=== PATIENT | female | born 2000 | race American Indian/Alaskan Native ===

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

== ENCOUNTER 2025-08-12 05:53 | Inpatient (IN) ==
[2025-08-12] MEDS ORDERED: LIDOCAINE 1% LOCAL 20 ML VIAL INFIL PRN (06:38)
[2025-08-12] MEDS ORDERED: OXYTOCIN 30 UNITS/NSS 30 UNITS/500 ML BAG IV PRN (06:38)
--- NOTE | 2025-08-12 06:42 | History & Physical Report ---
Date of Service August 12, 2025 Assessment & Plan (1) labor: Plan: 34 weeks 6 days presents in spontaneous labor 5 cm on admission to hospital bulging membranes presenting part not easily palpable ultrasound performed in its vertex start penicillin will make pediatric metrics aware patient request epidural not a transfer candidate as she has 5 cm second baby History of Present Illness Primary Care Provider: NO PCP Estimated Delivery Date Method Current WG Current Estimate 09/17/25 Ultrasound #1 34w 0d Other Estimates 08/24/25 LMP (Certain) 37w 3d LMP: 11/17/24 : 2 Full term: 0 Premature: 1 Total Number of Induced Abortions: 0 Total Number of Spontaneous Abortions: 0 Ectopics: 0 Multiple births: 0 Number of Living Children: 1 and Delivery Plans Previous delivery at 34 weeks PPROM *MFM Consult 04/10/25 *cx length us Q 2wk until 23w6d - Declined at 20w Hep B not immune 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 Thalassemia FOB to be tested - order provided 04/01 - Declined Allergies Allergy/AdvReac Type Severity Reaction Status Date / Time No Known Allergies Allergy Unknown Verified 08/06/25 16:04 Home Medications Medication Instructions Recorded Confirmed Type No Known Home Medications 01/29/25 08/06/25 History Patient History Medical History (Updated 08/12/25 @ 06:40 by Avani Magaña MD, FACOG) Varicella vaccination UTI (urinary tract infection) Asthma Surgical History S/P tonsillectomy Family History Mother Thyroid cancer Denies family history of Ovarian cancer Breast cancer Colorectal cancer Uterine cancer Social History (Updated 08/12/25 @ 06:14 by Sunitha Scott, RN) Smoking Status: Never smoker Do You Dip or Chew Tobacco: No; Hx Alcohol Use: No Hx Substance Use: No Preferred Language: German Communication Ability: Effective Shelter Monitor Required: No Beliefs That Will Affect Care: None marital status: marital status details: Tal Garrett (24) [phone] Current Living Situation: Spouse and Family Current Living Situation Comment: lives with , son, no pets current occupational status: unemployed current occupation: homemaker Other Information That Helps Us Care for You: No Feels Safe at Home: Yes Safety Concerns: Feels Safe At This Time Assistive Devices: Contacts Physical Exam Constitutional: WD/WN, vitals as above well developed and well nourished Respiratory: normal respiratory effort, lungs clear to auscultation normal respiratory effort Cardiovascular: RRR, no murmur, no edema Gastrointestinal (Abdomen): normal bowel sounds, soft, nontender, no hepatosplenomegaly Results & Data Vital Signs (Past 12 Hours) Vital Signs Temp Resp 08/12/25 06:14 97.9 F 18 Coding Level of Care Code None Diagnoses labor O60.00
[2025-08-12] MEDS: LACTATED RINGER'S 1,000 ML IV PRN (06:45)
[2025-08-12 07:05] LABS: Hematocrit (blood only) 39.4 % (37.0-47.0); Hemoglobin 13.3 g/dL (12.0-16.0); Mean Corpuscular Hemoglobin 27.5 pg (25.0-34.0); Mean Corpuscular Volume 81.4 fL (80.0-100.0); Platelet Count 270 K/uL (130-400); RDW Standard Deviation 34.6 fL (36.4-46.3); Red Blood Count 4.84 M/uL (4.20-5.40); White Blood Count 8.52 K/ul (4.8-10.8)
[2025-08-12] MEDS ORDERED: LIDOCAINE 2% MPF LOCAL 5 ML VIAL EPI PRN (07:08)
[2025-08-12] MEDS ORDERED: NALOXONE HCL 0.4 MG/1 ML VIAL/CARP IV PRN (07:08)
[2025-08-12] MEDS ORDERED: SODIUM CHLORIDE 0.9% PF INJ 10 ML VIAL EPI STA (07:08)
[2025-08-12] MEDS ORDERED: SODIUM CHLORIDE 0.9% PF INJ 10 ML VIAL EPI PRN (07:08)
[2025-08-12] MEDS ORDERED: NALOXONE HCL 1 MG in SODIUM CHLORIDE 0.9% 1,000 ML IV PRN (07:08)
[2025-08-12] MEDS ORDERED: diphenhydrAMINE 50 MG/ML VIAL IV PRN (07:08)
[2025-08-12] MEDS ORDERED: NALBUPHINE HCL INJ 10 MG/ML AMP IV PRN (07:08)
[2025-08-12] MEDS ORDERED: BUPIVACAINE 0.25% PF 30 ML VIAL EPI STA (07:08)
[2025-08-12] MEDS ORDERED: ROPIVACAINE 0.5% PF 5 MG/ML 20 ML VIAL EPI PRN (07:08)
--- NOTE | 2025-08-12 07:12 | Anesthesiology Consultation ---
Date of Service August 12, 2025 Assessment & Plan Chart Review Chart Review: Patient NOT seen in Pre Admission Testing and Acceptable Risk for Labor Epidural Consults Requested none ASA ASA2 Proposed Anesthesia Anesthesia Type: Labor Epidural Risk / Benefits Reviewed With: PT / POA / Parent / Guardian, Accepts Plan and Informed Consent Obtained History Height/Weight Height: 5 ft Weight: 69.4 kg Allergies Allergy/AdvReac Type Severity Reaction Status Date / Time No Known Allergies Allergy Unknown Verified 08/06/25 16:04 Medications Home Medications Medication Instructions Recorded Confirmed Last Taken No Known Home Medications 01/29/25 08/06/25 Unknown Active Medications Generic Name Dose Route Start Last Admin Trade Name Freq PRN Reason Stop Dose Admin Lactated Ringer's 1,000 mls @ 125 mls/hr 08/12/25 06:38 08/12/25 06:45 Lr IV 08/14/25 06:37 999 mls/hr .Q8H PRN Administration L&D Protocol Protocol NPO Date Last Intake of Fluids: 08/12/25 Time Last Intake of Fluids: 07:00 Date Last Intake of Solids: 08/11/25 Time Last Intake of Solids: 21:00 Past Medical History Medical History Varicella vaccination UTI (urinary tract infection) Asthma Exercise / Class Metabolic Activity II 4-5 Yardwork/Stairs/Walk up hill Past Family History Family History Mother Thyroid cancer Denies family history of Ovarian cancer Breast cancer Colorectal cancer Uterine cancer Past Surgical History Surgical History S/P tonsillectomy Past Anesthesia History No Hx of Anesthesia Complications and No Family Hx of Anesthesia Complications History of PONV No Hx of PONV and No Hx of Motion Sickness Social History Smoking Status: Never smoker Do You Dip or Chew Tobacco: No Hx Alcohol Use: No Hx Substance Use: No Review of Systems ROS Unobtainable: All systems reviewed & are unremarkable except as noted in HPI & below Physical Exam Vital Signs Last Vital Signs Temp 36.6 C 08/12/25 06:14 Pulse 68 08/12/25 07:06 Resp 18 08/12/25 06:14 Pulse Ox 100 08/12/25 07:06 ENMT Mouth: no TMJ abnormality Thyromental Distance: > or= 3.5 Finger Breadths Mallampati Class: II Neck normal visual inspection and trachea midline; neck extension not limited Respiratory normal respiratory effort Auscultation: lungs clear to auscultation bilaterally Cardiovascular Rate/Rhythm: regular rate and regular rhythm Heart Sounds: no murmur Musculoskeletal Spine: normal cervical ROM Extremities: full ROM of extremities Neurologic moves all extremities Psychiatric Orientation: alert and oriented x 3 Testing Laboratory Results 08/12/25 06:43
[2025-08-12] MEDS: LIDOCAINE 2%/EPINEPHRINE 1:200,000 20 ML PF EPI STA (07:30)
[2025-08-12] MEDS: BUPIVACAINE 0.25% PF 30 ML VIAL EPI PRN (07:30)
[2025-08-12] MEDS: fentANYL 2 MCG/ML BUPIVacaine 0.125%-NSS 100ML BAG EPI PRN (07:30)
[2025-08-12] MEDS: PENICILLIN GK 6 MU in DEXTROSE 5% 250 ML IV STA (07:30)
--- NOTE | 2025-08-12 07:39 | Communication Note ---
Date of Service: August 12, 2025 On 1st attempt, +CSF at L3-4. Removed needled and performed epidural at L2-3 without complication. Discussed with bedside RN and patient and patient und erstands signs and symptoms to look out for in the post period.
--- NOTE | 2025-08-12 09:01 | Labor Progress Brief Note ---
Date of Service August 12, 2025 Subjective Comfortable with epidural. FHT Cat 1 [place] q 2 Cervix exam by RN anterior lip/bulging bag Has rec'd first dose PCN. Assessment & Plan Admission and Anticipated Discharge Date Admission Date: August 12, 2025 Results & Data Vital Signs (Past 12 Hours) Vital Signs Temp Pulse Resp BP Pulse Ox 08/12/25 08:53 84 102/55 L 08/12/25 08:51 90 100 08/12/25 08:46 81 100 08/12/25 08:41 83 100 08/12/25 08:38 102 H 109/55 L 08/12/25 08:36 104 H 100 08/12/25 08:31 89 100 08/12/25 08:30 16 08/12/25 08:30 16 08/12/25 08:26 102 H 100 08/12/25 08:23 94 H 96/51 L 08/12/25 08:21 77 100 08/12/25 08:16 85 100 08/12/25 08:11 91 H 100 08/12/25 08:09 93 H 101/59 L 08/12/25 08:06 94 H 100 08/12/25 08:01 86 100 08/12/25 07:56 88 100 08/12/25 07:51 110 H 108/57 L 100 08/12/25 07:49 88 100/52 L 08/12/25 07:47 83 103/55 L 08/12/25 07:46 96 H 100 08/12/25 07:45 82 106/55 L 08/12/25 07:43 86 102/55 L 08/12/25 07:41 100 08/12/25 07:41 87 08/12/25 07:41 92 H 105/58 L 08/12/25 07:39 85 106/56 L 08/12/25 07:37 81 105/57 L 08/12/25 07:36 76 100 08/12/25 07:34 86 88/49 L 08/12/25 07:33 86 85/49 L 08/12/25 07:31 75 93/51 L 99 08/12/25 07:26 88 100 08/12/25 07:24 89 124/73 08/12/25 07:21 105 H 98 08/12/25 07:16 98 H 100 08/12/25 07:11 71 100 08/12/25 07:06 68 100 08/12/25 07:01 81 100 08/12/25 06:56 93 H 100 08/12/25 06:14 36.6 C 18 08/12/25 06:00 18 08/12/25 06:00 36.6 C 18 Coding Level of Care Code None
[2025-08-12] MEDS ORDERED: PENICILLIN GK 3 MU in DEXTROSE 5% 100 ML IV PRN (09:39)
[2025-08-12] MEDS: OXYTOCIN 30 UNITS/NSS 30 UNITS/500 ML BAG IV PRN (10:34)
--- NOTE | 2025-08-12 10:52 | Delivery Summary ---
Vaginal Delivery Summary Date of Service August 12, 2025 Vaginal Delivery Summary [facility] Vaginal Delivery Summary: Pre-delivery diagnoses: 24yo @ 34 6/, spontaneous labor Post-delivery diagnoses: same Procedure: spontaneous vaginal delivery Surgeon: Maria Ines Stearns DO Complications: none Findings: Viable male . Apgars: 7/8 . Weight pending, please see nursery records Estimated QBL: 200cc Description of delivery: The patient progressed to complete with epidural anesthesia. Baby began to have variable decelerations, therefore AROM was performed for scant clear fluid and she then began to push. She spontaneously vaginally delivered a viable from the cephalic presentation. The head delivered in DIONNA position. Nuchal x 1, too tight to reduce, therefore delivered through. The anterior shoulder delivered, followed by the posterior shoulder, followed by the body. The baby was placed on mother's abdomen and a spontaneous cry was heard. Delayed cord clamping was employed for approx 35sec, and the cord was doubly clamped and cut. A segment was retained for cord gases. Cord blood was obtained. The placenta was delivered spontaneously intact with a 3- vessel cord. The uterus and vagina were swept of clots and debris. IV pitocin was given. The uterus became firm. The cervix, vagina, and perineum were inspected and no lacerations were noted. Excellent hemostasis was observed. The mother and baby are recovering in stable and good condition in the room. Sponge and instrument counts were correct x 2. Maria Ines Stearns DO [facility] Vaginal Delivery Charge Vaginal Delivery Codes: 11559 global code for the antepartum, delivery, and post- Delivery Type Details: [facility]
[2025-08-12 10:56] LABS: Base Excess Cord Arterial Bld -8.1 mEq/L (-9-1.8); CO2 Cord Arterial Blood 69 mmHg (39.1-73.5); HCO3 Cord Arterial Blood 23 mmol/L (19.7-28.5); Oxygen Sat Cord Arterial Blood < 60.0 % (<60); PO2 Cord Arterial Blood < 20 mmHg (4.1-31.7); pH Cord Arterial Blood 7.13 (7.1-7.38)
[2025-08-12 10:57] LABS: Base Excess Cord Venous Blood -7.5 mEq/L (-7.7-1.9); Cord Venous Blood PO2 27 mmHg (14.1-43.3); O2 Saturation Cord Venous Bld < 60.0 % (<68)
[2025-08-12] MEDS ORDERED: HYDROCORTISONE ACETATE 25 MG SUPP PR PRN (11:02)
[2025-08-12] MEDS: BUPIVACAINE 0.25% PF 30 ML VIAL ONE (11:10)
[2025-08-12] MEDS: fentANYL 2 MCG/ML BUPIVacaine 0.125%-NSS 100ML BAG ONE (11:11)
[2025-08-12] MEDS: LIDOCAINE 2%/EPINEPHRINE 1:200,000 20 ML PF ONE (11:11)
[2025-08-12] MEDS: SODIUM CHLORIDE 0.9% PF INJ 10 ML VIAL ONE (11:11)
[2025-08-12] MEDS ORDERED: KETOROLAC TROMETHAMINE 15 MG/ML VIAL IV PRN (11:14)
[2025-08-12] MEDS: BENZOCAINE 20% SPRY 85 APPLN/85 GM CAN EXT PRN (11:19)
[2025-08-12] MEDS: IBUPROFEN 600 MG TAB PO PRN (11:19)
[2025-08-12] MEDS: ACETAMINOPHEN 325 MG TAB PO PRN (11:20)
--- NOTE | 2025-08-12 12:02 | Anesthesia Procedure Note ---
Date of Service August 12, 2025 Anesthesia Post Epidural Note Vital Signs Vital Signs: Temp Pulse Resp BP Pulse Ox 36.9 C 71 16 97/56 L 100 08/12/25 10:50 08/12/25 11:53 08/12/25 11:50 08/12/25 11:53 08/12/25 10:31 Pain Intensity Lower Abdomen: Pain Intensity: 1 Notes Mental Status: alert / awake / arousable and participated in evaluation Nausea / Vomiting: adequately controlled Pain: adequately controlled Airway Patency, RR, SpO2: stable & adequate BP & HR: stable & adequate Hydration State: stable & adequate Neuraxial Anesthesia: was administered and sensory block is resolving Anesthetic Complications: no major complications apparent Epidural: Removed without complications and With tip intact
[2025-08-12] MEDS: DOCUSATE SODIUM 100 MG CAP PO ONE (20:22)
[2025-08-12] MEDS: DOCUSATE SODIUM 100 MG CAP PO SCH (20:42)
[2025-08-13 03:57] VITALS: O2SAT 99
--- NOTE | 2025-08-13 06:31 | Obstetrical Progress Note ---
Date of Service August 13, 2025 Assessment & Plan (1) care and examination: Plan: 24yo post- day--1 s/p Fells well today Continue post- care Encourage ambulation and Pain controlled with Ibuprofen, Tylenol Vital Signs stable Discharge today, follow up with OB provider in 6 weeks Admission and Anticipated Discharge Date Admission Date: August 12, 2025 Supervising Physician Co-Signing Physician Notes Resident Physician Supervision Note: I interviewed and examined the patient. Discussed with Dr. Thomas and agree with findings and plan as documented in the note. Any exceptions or clarifications are listed here: PPD#1 doing well. Routine care. Anticipate DC home today, as baby was transferred. Followup in 6w in office. Documented By: Maria Ines Stearns, DO Subjective 24yo post- day 1 s/p Ambulation: Ambulating normally Voiding: No voiding problems Passing Gas:: Yes Diet Tolerance:: regular diet Lochia:: Small Feeding Type:: Current Pain Level: 1/10 controlled with Tylenol, Ibuprofen Resting comfortably this AM in NAD. Denies FRENCH, CP, SOB, N/V/D, LE pain/swelling. Physical Exam Physical Exam: General: patient resting comfortably, NAD, non-toxic in appearance, answers questions appropriately Skin: warm, dry, intact Heart: S1/S2 heard, regular, no m/r/g Lungs: equal air entry bilaterally, no rales/rhonchi/wheezes Abd: soft, NT/ND, uterine fundus firm at umbilicus Ext: warm, no clubbing/cyanosis or edema Neuro: nonfocal, patient AAOx4, speech intact, no facial droop, moving all extremities on command Results & Data Vital Signs (Past 12 Hours) Vital Signs Temp Pulse Resp BP Pulse Ox O2 Del Method 08/13/25 03:10 36.7 C 55 L 18 111/66 99 Room Air 08/12/25 23:20 36.3 C L 63 18 104/62 98 Room Air 08/12/25 20:15 36.6 C 72 18 109/59 L 99 Room Air Resident Activity Tracking Resident Involvement: Resident Care Provided Care Provided: OB Delivery
[2025-08-13 06:38] LABS: Hematocrit (blood only) 31.9 % (37.0-47.0); Hemoglobin 10.5 g/dL (12.0-16.0)
[2025-08-13] MEDS: PRENATAL VITAMIN 1 TAB PO SCH (07:20)
[2025-08-13] MEDS: DIPHTHER/TETAN/PERTUS Vaccine (Tdap, Adol/Adult) 0.5mL IM ONE (07:21)
[2025-08-13 08:21] VITALS: BP 107/71; PULSE 63; RESP 16; TEMP 97.7
[2025-08-14] MEDS ORDERED: KETOROLAC TROMETHAMINE 15 MG/ML VIAL IV ONE (12:03)
[2025-08-14] MEDS ORDERED: ACETAMINOPHEN 1,000 MG/100 ML VIAL IV STA (12:03)
--- NOTE | 2025-08-14 12:20 | Anesthesiology Consultation ---
Date of Service August 14, 2025 Assessment & Plan Chart Review Chart Review: Patient NOT seen in Pre Admission Testing acceptable risk for epidural blood patch Consults Requested none ASA ASA2 Proposed Anesthesia Anesthesia Type: Other (Epidura blood patch) Risk / Benefits Reviewed With: PT / POA / Parent / Guardian, Accepts Plan and Informed Consent Obtained Additional Comments: Patient presents to ED with worsening neck pain 2 days after accidneta dural puncture during labor epidural. she denies head pain, nausea, fever, chills, vison changes, tinnitus or hearing loss. She notes some back soreness but no radiating symptoms. Neck pain remains severe despite conservative treatment and patient opts to proceed with epidural blood patch. Consent obtained. IV tylenol and toradol to be given after and patient to remain supine in ED for 1 hour post blood patch. History Height/Weight Height: 5 ft Weight: 69.4 kg Allergies Allergy/AdvReac Type Severity Reaction Status Date / Time No Known Allergies Allergy Unknown Verified 08/06/25 16:04 Medications Home Medications Medication Instructions Recorded Confirmed Last Taken vits no.124-ferrous fum 1 tab PO DAILY 08/12/25 08/12/25 08/08/25 27 mg iron-folic acid 800 mcg tablet ( Vitamin) NPO Date Last Intake of Fluids: 08/12/25 Time Last Intake of Fluids: 07:00 Date Last Intake of Solids: 08/11/25 Time Last Intake of Solids: 21:00 Past Medical History Medical History Varicella vaccination UTI (urinary tract infection) Asthma Exercise / Class Metabolic Activity 1 > 8 Run/Swim/Ski/Tennis Past Family History Family History Mother Thyroid cancer Denies family history of Ovarian cancer Breast cancer Colorectal cancer Uterine cancer Past Surgical History Surgical History S/P tonsillectomy Past Anesthesia History No Hx of Anesthesia Complications and No Family Hx of Anesthesia Complications History of PONV No Hx of PONV and No Hx of Motion Sickness Social History Smoking Status: Never smoker Do You Dip or Chew Tobacco: No Hx Alcohol Use: No Hx Substance Use: No Review of Systems ROS Unobtainable: All systems reviewed & are unremarkable except as noted in HPI & below Physical Exam Vital Signs Last Vital Signs Temp 36.5 C 08/13/25 08:21 Pulse 63 08/13/25 08:21 Resp 16 08/13/25 08:21 BP 107/71 08/13/25 08:21 Pulse Ox 99 08/13/25 08:21 O2 Del Method Room Air 08/13/25 07:10 ENMT Mouth: no TMJ abnormality Thyromental Distance: > or= 3.5 Finger Breadths Mallampati Class: II Neck normal visual inspection and trachea midline; neck extension not limited Respiratory normal respiratory effort Auscultation: lungs clear to auscultation bilaterally Cardiovascular Rate/Rhythm: regular rate and regular rhythm Heart Sounds: no murmur Musculoskeletal Spine: normal cervical ROM Extremities: full ROM of extremities Neurologic moves all extremities Psychiatric Orientation: alert and oriented x 3 Testing Laboratory Results 08/13/25 05:59 08/12/25 Unknown Group B Streptococcus Culture - Final Vaginal/Rectal Strep agalactiae (group B)
--- NOTE | 2025-08-14 12:22 | Anesthesia Procedure Note ---
Anesthesia Procedure Note Epidural Blood Patch Procedure Note Date of procedure: 08/14/25 Consent: Risk / Benefits Reviewed With: PT / POA / Parent / Guardian, Informed Consent Obtained and All Questions Answered Risks include: Failure of technique, Back pain, Infection, Bleeding, Nerve injury and Dural puncture Monitors attached: Blood Pressure, CO2, EKG and Pulse Oximetry Time out completed: Yes Premedication: None Position: Sitting Surgical Prep: Hand hygeine: Alcohol based hand rub Equipment/Supplies: Cap, Mask, Sterile gloves, Sterile drapes and Sterile procedures used Skin prep: Chloraprep Local medication: 1% Lidocaine (ml) Venous access site: Other (L forearm and R wrist by IV team) Site: Midline Attempts: 1 Procedure Summary: Achieved loss of resistance at 4 cm. Incrementally injected 13 cc of blood drawn sterilely. Terminated at 13 cc due to intense pressure in back. neck pain improved by end of procedure. Post-Procedure: Pt hemodynamically stable, Pt tolerates well and No complications
== END 2025-08-13 11:06 | disposition home or self-care (01) | DRG 807 ==
LOC: OPB 05:53 → 4S1 05:56 → 4E2 13:20